=== PATIENT | female | born 1960 | race Caucasian/White ===

== ENCOUNTER 2023-07-03 17:12 | Inpatient (IN) | payer MEDICAID ==
[~2023-07-03] VITALS: Ht 149.9 cm; Wt 57.2 kg
[2023-07-03 17:22] VITALS: BP_SYST 148; PULSE 48; RESP 18; TEMP 97.6; O2SAT 96
[2023-07-03 19:16] LABS: BASOPHILS # (AUTO) 0.1 K/uL (0.0-0.2); HEMOGLOBIN 8.6 g/dL (12.0-16.0); NEUTROPHILS # (AUTO) 5.1 K/uL (1.8-7.7); RED CELL DISTRIBUTION WIDTH 18.7 % (9.0-15.0)
[2023-07-03 19:20] LABS: EOSINOPHILS # (AUTO) 0.3 K/uL (0.0-0.4); EOSINOPHILS % (AUTO) 4.4 % (0.0-4.0); HEMATOCRIT 25.6 % (36-48); LYMPHOCYTES # (AUTO) 0.9 K/uL (1.0-5.5); LYMPHOCYTES % (AUTO) 12.5 % (20.5-51.5); MEAN CORPUSCULAR HEMOGLOBIN 31 pg (27-31); MEAN CORPUSCULAR HGB CONC 33 % (32-36); MEAN CORPUSCULAR VOLUME 93 fL (79.0-98.0); MONOCYTES # (AUTO) 0.7 K/uL (0.0-1.0); MONOCYTES % (AUTO) 9.5 % (1.7-9.3); NEUTROPHILS % (AUTO) 72.6 % (40.0-70.0); PLATELET COUNT (AUTO) 204 K/uL (130-430); RED BLOOD CELL COUNT(AUTO) 2.74 MIL/uL (4.2-6.2)
[2023-07-03 19:37] LABS: ANION GAP 9 (5-15); CALCIUM 8.4 mg/dL (8.4-11.0); CARBON DIOXIDE 27 mmol/L (23-29); CHLORIDE 103 mmol/L (98-107); CREATININE 2.78 mg/dL (0.55-1.30); GFR AFRICAN AMERICAN 22 mL/min (>90); GFR NON AFRICAN-AMERICAN 18 mL/min (>90); GLUCOSE 106 mg/dL (74-106); POTASSIUM 5.2 mmol/L (3.5-5.1); SODIUM SERUM 139 mmol/L (136-145); UREA NITROGEN, BLOOD 52 mg/dL (8-21)
[2023-07-03] MEDS: DEXTROSE 50% JECT 50 ML DISP.SYRIN IVP ONE (21:32)
[2023-07-03] MEDS: INSULIN REGULAR, HUMAN 10 UNITS/0.1 ML, 3 ML VIAL IVP ONE (21:34)
[2023-07-03] MEDS: SODIUM BICARBONATE 8.4% JECT 50 MEQ/50 ML SYRINGE IVP ONE (21:39)
[2023-07-03] MEDS: CALCIUM GLUC 1 GM/100ML-NACL 100 ML IV ONE (21:40)
[2023-07-03] MEDS: ONDANSETRON HCL 4 MG/2 ML VIAL IVP ONE (21:45)
[2023-07-03 22:02] LABS: BILIRUBIN,URINE NEGATIVE (NEGATIVE); BLOOD, URINE NEGATIVE (NEGATIVE); COLOR,URINE YELLOW (YELLOW); GLUCOSE,URINE NEGATIVE (NEGATIVE); KETONES,URINE NEGATIVE (NEGATIVE); LEUKOCYTE ESTERASE ,URINE 1+ (NEGATIVE); NITRITE, URINE NEGATIVE (NEGATIVE); PH,URINE 5.5 (5.0-8.0); PROTEIN URINE 2+ (NEGATIVE); UROBILINOGEN,URINE 0.2 (0.2-1.0)
[2023-07-03 22:05] LABS: CLARITY/URINE HAZY (CLEAR)
[2023-07-03 22:09] LABS: BACTERIA,URINE FEW /HPF (None Seen); MUCUS,URINE None Seen /LPF (None Seen); RBC,URINE NONE SEEN /HPF (0-3); WBC,URINE 20-50 /HPF (0-3)
[2023-07-03] MEDS ORDERED: ASPI-524 PO (22:48)
[2023-07-03] MEDS ORDERED: NITR0.4T47 SL (22:48)
[2023-07-03] MEDS ORDERED: ISOS20TA8 PO (22:48)
[2023-07-03] MEDS ORDERED: ALLO100T PO (22:48)
[2023-07-03] MEDS ORDERED: CLOP75TA32 PO (22:48)
[2023-07-03] MEDS ORDERED: FURO80TA3 PO (22:48)
[2023-07-03] MEDS ORDERED: LEVO200C2 PO (22:48)
[2023-07-03] MEDS ORDERED: HYDR100T25 PO (22:48)
[2023-07-03] MEDS ORDERED: CARV6.2554 PO (22:48)
[2023-07-03] MEDS ORDERED: NEU100 PO (22:48)
[2023-07-03] MEDS ORDERED: DAPA5TAB PO (22:48)
[2023-07-03] MEDS ORDERED: NIFE-34 PO ×2 (22:48)
[2023-07-03] MEDS ORDERED: SEVE800T8 PO (22:48)
[2023-07-03] MEDS ORDERED: PANT40TA45 PO (22:48)
[2023-07-04] VITALS (10 sets, daily range): BP systolic 110–158; PULSE 51–55; RESP 16–18; TEMP 96.5–98.2; O2SAT 94–100
[2023-07-04] MEDS ORDERED: NITROGLYCERIN 0.4 MG TAB.SUBL SL PRN
[2023-07-04] MEDS ORDERED: ALLOPURINOL 100 MG TABLET (ZYLOPRIM) PO SCH
[2023-07-04] MEDS ORDERED: AZITHROMYCIN 500 MG/VIAL (ZITHROMAX) IV ONE ×2 (00:37→01:46)
[2023-07-04] MEDS: cefTRIAXone 1 GM IVPB PREMIX 50 ML IV ONE (00:39)
[2023-07-04] MEDS: AZITHROMYCIN 500 MG in NS 250 ML IV SCH (02:01)
[2023-07-04] MEDS ORDERED: PIPERACILLIN/TAZOBACTAM 2.25 GM VIAL IV ONE ×2 (05:05→05:18)
[2023-07-04] MEDS: PIPERACILLIN/TAZOBACTAM 2.25 GM in D5W 50 ML IV SCH (05:23)
[2023-07-04 06:23] LABS: BASOPHILS # (AUTO) 0.1 K/uL (0.0-0.2); BASOPHILS % (AUTO) 1.2 % (0.0-2.0); EOSINOPHILS # (AUTO) 0.3 K/uL (0.0-0.4); EOSINOPHILS % (AUTO) 5.1 % (0.0-4.0); HEMATOCRIT 27.1 % (36-48); HEMOGLOBIN 8.9 g/dL (12.0-16.0); LYMPHOCYTES # (AUTO) 0.9 K/uL (1.0-5.5); LYMPHOCYTES % (AUTO) 14.6 % (20.5-51.5); MEAN CORPUSCULAR HEMOGLOBIN 31 pg (27-31); MEAN CORPUSCULAR HGB CONC 33 % (32-36); MEAN CORPUSCULAR VOLUME 94 fL (79.0-98.0); MONOCYTES # (AUTO) 0.7 K/uL (0.0-1.0); MONOCYTES % (AUTO) 10.9 % (1.7-9.3); NEUTROPHILS # (AUTO) 4.3 K/uL (1.8-7.7); NEUTROPHILS % (AUTO) 68.2 % (40.0-70.0); PLATELET COUNT (AUTO) 207 K/uL (130-430); WHITE BLOOD COUNT (AUTO) 6.3 K/uL (4.8-10.8)
[2023-07-04 06:50] LABS: ALBUMIN 2.3 g/dL (3.4-4.8); CALCIUM 8.8 mg/dL (8.4-11.0); CREATININE 2.98 mg/dL (0.55-1.30); PHOSPHORUS 6.4 mg/dL (2.7-4.5); POTASSIUM 5.3 mmol/L (3.5-5.1); TOTAL BILIRUBIN 0.4 mg/dL (0.0-1.0); TOTAL PROTEIN, SERUM 6.9 g/dL (6.4-8.3)
[2023-07-04] MEDS: GABAPENTIN 100 MG CAPSULE PO SCH (07:00)
[2023-07-04] MEDS: IPRATROPIUM/ALBUTEROL SULFATE 3 ML AMPUL.NEB (DUONEB) INH SCH (07:10)
[2023-07-04] MEDS: ASPIRIN 81 MG TAB.CHEW PO SCH (08:06)
[2023-07-04] MEDS: CARVEDILOL 6.25 MG TABLET (COREG) PO SCH (08:07)
[2023-07-04] MEDS: FUROSEMIDE 80 MG TABLET PO SCH (08:08)
[2023-07-04] MEDS: ISOSORBIDE DINITRATE 20 MG TABLET (ISORDIL) PO SCH (08:08)
[2023-07-04] MEDS: CLOPIDOGREL BISULFATE 75 MG TABLET PO SCH (08:09)
[2023-07-04] MEDS: SEVELAMER CARBONATE 800 MG TABLET PO SCH (08:09)
[2023-07-04] MEDS ORDERED: DAPAGLIFLOZIN PROPANEDIOL NF 5 MG TABLET PO SCH (09:00)
[2023-07-04] MEDS ORDERED: hydrALAZINE HCL 25 MG TABLET PO SCH (09:00)
[2023-07-04] MEDS: EMPAGLIFLOZIN 10 MG TABLET PO SCH (11:14)
[2023-07-04] MEDS: INSULIN REGULAR, HUMAN 100 UNITS/ML, 3 ML VIAL (humuLIN R) SUBCUT PRN (12:20)
[2023-07-04] MEDS: hydrALAZINE HCL 20 MG/ML VIAL IVP PRN (15:10)
[2023-07-04] MEDS ORDERED: HEPARIN SODIUM, PORCINE 10,000 UNITS/ 10 ML VIAL MC ONE (21:00)
[2023-07-04] MEDS: HEPARIN SODIUM,PORCINE 5,000 UNITS/ML VIAL MC ONE (21:18)
[2023-07-05] VITALS (10 sets, daily range): BP systolic 149–170; PULSE 55–60; RESP 16–20; TEMP 96.7–97.9; O2SAT 96–99
[2023-07-05 04:11] LABS: BASOPHILS # (AUTO) 0.1 K/uL (0.0-0.2); BASOPHILS % (AUTO) 1.4 % (0.0-2.0); EOSINOPHILS # (AUTO) 0.3 K/uL (0.0-0.4); EOSINOPHILS % (AUTO) 6.8 % (0.0-4.0); HEMATOCRIT 27.9 % (36-48); HEMOGLOBIN 9.1 g/dL (12.0-16.0); LYMPHOCYTES # (AUTO) 0.6 K/uL (1.0-5.5); LYMPHOCYTES % (AUTO) 12.5 % (20.5-51.5); MEAN CORPUSCULAR HEMOGLOBIN 30 pg (27-31); MEAN CORPUSCULAR HGB CONC 33 % (32-36); MEAN CORPUSCULAR VOLUME 93 fL (79.0-98.0); MONOCYTES # (AUTO) 0.6 K/uL (0.0-1.0); MONOCYTES % (AUTO) 11.1 % (1.7-9.3); NEUTROPHILS # (AUTO) 3.5 K/uL (1.8-7.7); NEUTROPHILS % (AUTO) 68.2 % (40.0-70.0); PLATELET COUNT (AUTO) 213 K/uL (130-430); RED BLOOD CELL COUNT(AUTO) 3.01 MIL/uL (4.2-6.2); RED CELL DISTRIBUTION WIDTH 18.8 % (9.0-15.0); WHITE BLOOD COUNT (AUTO) 5.1 K/uL (4.8-10.8)
[2023-07-05 04:12] LABS: INR 1.3 (0.8-1.2)
[2023-07-05 04:20] LABS: ALBUMIN 2.4 g/dL (3.4-4.8); CALCIUM 7.7 mg/dL (8.4-11.0); CREATININE 2.19 mg/dL (0.55-1.30); POTASSIUM 4.8 mmol/L (3.5-5.1); TOTAL BILIRUBIN 0.4 mg/dL (0.0-1.0); TOTAL PROTEIN, SERUM 7.3 g/dL (6.4-8.3)
[2023-07-05 04:29] LABS: THYROID STIMULATING HORMONE 2.89 uIu/mL (0.36-3.74)
[2023-07-05 05:03] LABS: TOTAL IRON BIND. CAPACITY 232 ug/dL (250-450)
[2023-07-06] VITALS (10 sets, daily range): BP systolic 115–162; PULSE 56–67; RESP 16–18; TEMP 96.4–98.1; O2SAT 97–100
[2023-07-06] MEDS: GABAPENTIN 100 MG CAPSULE PO PRN (00:42)
[2023-07-06 06:41] LABS: BASOPHILS # (AUTO) 0.1 K/uL (0.0-0.2); EOSINOPHILS # (AUTO) 0.4 K/uL (0.0-0.4); EOSINOPHILS % (AUTO) 6.8 % (0.0-4.0); HEMATOCRIT 28.6 % (36-48); HEMOGLOBIN 9.1 g/dL (12.0-16.0); LYMPHOCYTES # (AUTO) 0.7 K/uL (1.0-5.5); LYMPHOCYTES % (AUTO) 13.5 % (20.5-51.5); MEAN CORPUSCULAR HEMOGLOBIN 30 pg (27-31); MEAN CORPUSCULAR HGB CONC 32 % (32-36); MEAN CORPUSCULAR VOLUME 94 fL (79.0-98.0); MONOCYTES # (AUTO) 0.7 K/uL (0.0-1.0); NEUTROPHILS # (AUTO) 3.6 K/uL (1.8-7.7); NEUTROPHILS % (AUTO) 65.7 % (40.0-70.0); PLATELET COUNT (AUTO) 200 K/uL (130-430); RED BLOOD CELL COUNT(AUTO) 3.03 MIL/uL (4.2-6.2); RED CELL DISTRIBUTION WIDTH 18.7 % (9.0-15.0); WHITE BLOOD COUNT (AUTO) 5.5 K/uL (4.8-10.8)
[2023-07-06 07:33] LABS: ALBUMIN 2.3 g/dL (3.4-4.8); CALCIUM 7.9 mg/dL (8.4-11.0); CREATININE 2.93 mg/dL (0.55-1.30); POTASSIUM 4.6 mmol/L (3.5-5.1); TOTAL BILIRUBIN 0.3 mg/dL (0.0-1.0); TOTAL PROTEIN, SERUM 7.1 g/dL (6.4-8.3)
[2023-07-06] MEDS: HEPARIN SODIUM,PORCINE 5,000 UNITS/ML VIAL MC ONE (11:28)
[2023-07-06] MEDS: SOD FERRIC GLUC COMPLEX/SUC 125 MG in NS 100 ML IV SCH (18:38)
[2023-07-07] VITALS (11 sets, daily range): BP systolic 135–156; PULSE 56–68; RESP 16–19; TEMP 97.3–98.8; O2SAT 97–99
[2023-07-07 05:48] LABS: BASOPHILS # (AUTO) 0.1 K/uL (0.0-0.2); BASOPHILS % (AUTO) 1.4 % (0.0-2.0); EOSINOPHILS # (AUTO) 0.4 K/uL (0.0-0.4); EOSINOPHILS % (AUTO) 9.1 % (0.0-4.0); HEMATOCRIT 28.1 % (36-48); HEMOGLOBIN 9.3 g/dL (12.0-16.0); LYMPHOCYTES % (AUTO) 21.3 % (20.5-51.5); MEAN CORPUSCULAR HEMOGLOBIN 31 pg (27-31); MEAN CORPUSCULAR HGB CONC 33 % (32-36); MEAN CORPUSCULAR VOLUME 93 fL (79.0-98.0); MONOCYTES # (AUTO) 0.7 K/uL (0.0-1.0); MONOCYTES % (AUTO) 14.2 % (1.7-9.3); NEUTROPHILS # (AUTO) 2.5 K/uL (1.8-7.7); PLATELET COUNT (AUTO) 191 K/uL (130-430); RED BLOOD CELL COUNT(AUTO) 3.02 MIL/uL (4.2-6.2); RED CELL DISTRIBUTION WIDTH 18.6 % (9.0-15.0); WHITE BLOOD COUNT (AUTO) 4.6 K/uL (4.8-10.8)
[2023-07-07] MEDS: DEXTROSE 50% JECT 50 ML DISP.SYRIN IVP PRN (06:28)
[2023-07-07 07:01] LABS: ALBUMIN 2.2 g/dL (3.4-4.8); CALCIUM 8.3 mg/dL (8.4-11.0); CREATININE 2.46 mg/dL (0.55-1.30); POTASSIUM 4.6 mmol/L (3.5-5.1); TOTAL BILIRUBIN 0.2 mg/dL (0.0-1.0); TOTAL PROTEIN, SERUM 6.9 g/dL (6.4-8.3)
[2023-07-07] MEDS: ACETYLCYSTEINE 20% 4 ML VIAL (RT) INH SCH (20:00)
[2023-07-07] MEDS: IPRATROPIUM/ALBUTEROL SULFATE 3 ML AMPUL.NEB (DUONEB) INH SCH (20:04)
[2023-07-08] VITALS (11 sets, daily range): BP systolic 145–177; PULSE 60–73; RESP 16–18; TEMP 97.6–98.1; O2SAT 98–100
[2023-07-08] MEDS: HEPARIN SODIUM,PORCINE 5,000 UNITS/ML VIAL SUBCUT ONE (12:59)
[2023-07-08] MEDS: GABAPENTIN 100 MG CAPSULE PO PRN (14:25)
[2023-07-09] VITALS (11 sets, daily range): BP systolic 141–206; PULSE 55–68; RESP 16–18; TEMP 96.4–98.8; O2SAT 92–100
[2023-07-09 06:58] LABS: BASOPHILS # (AUTO) 0.1 K/uL (0.0-0.2); BASOPHILS % (AUTO) 1.2 % (0.0-2.0); EOSINOPHILS # (AUTO) 0.4 K/uL (0.0-0.4); EOSINOPHILS % (AUTO) 8.6 % (0.0-4.0); HEMATOCRIT 28.7 % (36-48); HEMOGLOBIN 9.5 g/dL (12.0-16.0); LYMPHOCYTES # (AUTO) 0.8 K/uL (1.0-5.5); MEAN CORPUSCULAR HEMOGLOBIN 31 pg (27-31); MEAN CORPUSCULAR HGB CONC 33 % (32-36); MEAN CORPUSCULAR VOLUME 92 fL (79.0-98.0); MONOCYTES # (AUTO) 0.6 K/uL (0.0-1.0); MONOCYTES % (AUTO) 11.8 % (1.7-9.3); NEUTROPHILS % (AUTO) 61.4 % (40.0-70.0); PLATELET COUNT (AUTO) 202 K/uL (130-430); RED BLOOD CELL COUNT(AUTO) 3.12 MIL/uL (4.2-6.2); RED CELL DISTRIBUTION WIDTH 18.3 % (9.0-15.0); WHITE BLOOD COUNT (AUTO) 4.9 K/uL (4.8-10.8)
[2023-07-09 07:06] LABS: CALCIUM 8.6 mg/dL (8.4-11.0); CREATININE 2.82 mg/dL (0.55-1.30); POTASSIUM 5.2 mmol/L (3.5-5.1)
[2023-07-09 10:33] LABS: INR 1.3 (0.8-1.2); PROTHROMBIN TIME 12.9 SECS (9.5-12.5)
[2023-07-10] VITALS (12 sets, daily range): BP systolic 148–180; PULSE 68–88; RESP 16–18; TEMP 97.2–98.2; O2SAT 90–99
[2023-07-10] MEDS ORDERED: SODIUM ZIRCONIUM CYCLOSILICATE 10 GM POWD.PACK PO ONE (01:20)
[2023-07-10] MEDS: SODIUM ZIRCONIUM CYCLOSILICATE 10 GM POWD.PACK PO ONE (01:40)
[2023-07-10 06:47] LABS: ALBUMIN 2.1 g/dL (3.4-4.8); CALCIUM 8.8 mg/dL (8.4-11.0); CREATININE 3.59 mg/dL (0.55-1.30); PHOSPHORUS 5.5 mg/dL (2.7-4.5); POTASSIUM 4.7 mmol/L (3.5-5.1); TOTAL BILIRUBIN 0.2 mg/dL (0.0-1.0); TOTAL PROTEIN, SERUM 6.7 g/dL (6.4-8.3)
[2023-07-10] MEDS: LEVOFLOXACIN 250 MG/D5W 50 ML IV SCH (14:15)
[2023-07-10] MEDS: GABAPENTIN 300 MG CAPSULE PO PRN (14:38)
[2023-07-10] MEDS: HEPARIN SODIUM, PORCINE 10,000 UNITS/ 10 ML VIAL MC ONE ×2 (19:06→19:22)
[2023-07-10] MEDS ORDERED: HEPARIN SODIUM, PORCINE 10,000 UNITS/ 10 ML VIAL MC ONE (19:15)
[2023-07-11] VITALS (10 sets, daily range): BP systolic 112–187; PULSE 61–78; RESP 16–18; TEMP 96.2–98.5; O2SAT 92–100
[2023-07-11] MEDS: ACETAMINOPHEN 325 MG TABLET PO PRN (02:03)
[2023-07-11 08:28] LABS: ALBUMIN 2.2 g/dL (3.4-4.8); CALCIUM 8.8 mg/dL (8.4-11.0); CREATININE 2.81 mg/dL (0.55-1.30); POTASSIUM 4.3 mmol/L (3.5-5.1); TOTAL BILIRUBIN 0.3 mg/dL (0.0-1.0); TOTAL PROTEIN, SERUM 6.9 g/dL (6.4-8.3)
[2023-07-11] MEDS: amLODIPine BESYLATE 10 MG TABLET PO SCH (09:00)
[2023-07-11] MEDS: HEPARIN SODIUM,PORCINE 5,000 UNITS/ML VIAL IV PRN (14:28)
[2023-07-12] VITALS (10 sets, daily range): BP systolic 131–173; PULSE 63–68; RESP 16–18; TEMP 97–97.9; O2SAT 92–100
[2023-07-12] MEDS: ACETYLCYSTEINE 20% 4 ML VIAL (RT) ONE (07:22)
[2023-07-12] MEDS: CLOPIDOGREL BISULFATE 75 MG TABLET PO SCH (11:34)
[2023-07-12] MEDS ORDERED: LEVO250T73 PO (15:50)
[2023-07-12] MEDS ORDERED: NOR10 PO (15:50)
[2023-07-12] MEDS ORDERED: IPRA3AMP9 INH (15:51)
== END 2023-07-12 19:20 | disposition home health service (06) | DRG 194 ==
LOC: SED 17:12 → STU 21:59 → SMU 07-12 15:53
PROVIDERS: ADMIT Internal Medicine; ATTEND Internal Medicine
PROC: 5A1D70Z Performance of Urinary Filtration, Intermittent, Less than 6 Hours Per Day (ICD-10-PCS; principal; 2023-07-04)
PROC: 5A1D70Z Performance of Urinary Filtration, Intermittent, Less than 6 Hours Per Day (ICD-10-PCS; 2023-07-06)
PROC: 5A1D70Z Performance of Urinary Filtration, Intermittent, Less than 6 Hours Per Day (ICD-10-PCS; 2023-07-08)
PROC: 02HV33Z Insertion of Infusion Device into Superior Vena Cava, Percutaneous Approach (ICD-10-PCS; 2023-07-09)
PROC: 5A1D70Z Performance of Urinary Filtration, Intermittent, Less than 6 Hours Per Day (ICD-10-PCS; 2023-07-11)
PROC: 0W993ZZ Drainage of Right Pleural Cavity, Percutaneous Approach (ICD-10-PCS; 2023-07-11)
DX: I13.2 Hypertensive heart and chronic kidney disease with heart failure and with stage 5 chronic kidney disease, or end stage renal disease (principal); J96.20 Acute and chronic respiratory failure, unspecified whether with hypoxia or hypercapnia; E43 Unspecified severe protein-calorie malnutrition; J18.9 Pneumonia, unspecified organism; N18.6 End stage renal disease; J90 Pleural effusion, not elsewhere classified; D63.1 Anemia in chronic kidney disease; I50.41 Acute combined systolic (congestive) and diastolic (congestive) heart failure; E11.22 Type 2 diabetes mellitus with diabetic chronic kidney disease; I25.10 Atherosclerotic heart disease of native coronary artery without angina pectoris; N39.0 Urinary tract infection, site not specified; E87.5 Hyperkalemia; Z90.49 Acquired absence of other specified parts of digestive tract; Z99.2 Dependence on renal dialysis; Z87.891 Personal history of nicotine dependence; Z85.038 Personal history of other malignant neoplasm of large intestine; Z79.899 Other long term (current) drug therapy; Z68.25 Body mass index [BMI] 25.0-25.9, adult; I95.9 Hypotension, unspecified
CPT/HCPCS: 32555; 36415; 71045; 71250-TC; 80048; 80053; 81000; 81001; 81015; 82948; 83037; 83540; 83550; 83605; 83880; 84100; 84443; 84484; 85025; 85610; 85730; 87040; 87086; 87186; 87230; 88108; 90935; 90937; 93005; 93306; 94070; 94640; 94760; 97110-GP; 97112-GP; 97116-GP; 97530-GP; 99285; G0378; J0360; J0456; J0696; J1644; J1815; J1956; J2405; J2543; J2916; J7050; J7060; J7608